=== PATIENT | female | born 1965 | race Caucasian/White ===

== ENCOUNTER 2021-12-23 21:00 | Emergency (ER) | payer OTHER ==
[~2021-12-23] VITALS: Ht 162.6 cm; Wt 79.4 kg
== END 2021-12-24 00:05 | disposition home or self-care (01) ==
LOC: ER 21:00
DX: S92.324A Nondisplaced fracture of second metatarsal bone, right foot, initial encounter for closed fracture (principal); X58.XXXA Exposure to other specified factors, initial encounter; Y92.9 Unspecified place or not applicable; W20.8XXA Other cause of strike by thrown, projected or falling object, initial encounter
CPT/HCPCS: 73630